=== PATIENT | female | born 1980 | race Caucasian/White ===

== ENCOUNTER 2022-03-01 22:27 | Emergency (ER) | payer BC ==
[2022-03-01] MEDS ORDERED: Tetracaine 0.5% PF 4 ML BOT ONE (22:58)
[2022-03-01] MEDS ORDERED: Fluorescein Opthalmic Strip ONE (22:58)
== END 2022-03-01 23:14 | disposition home or self-care (01) ==
LOC: CSHERS 22:27
DX: H10.9 Unspecified conjunctivitis (principal); I25.2 Old myocardial infarction; E03.9 Hypothyroidism, unspecified
CPT/HCPCS: 99282